=== PATIENT | female | born 1940 | race Caucasian/White ===

== ENCOUNTER 2018-01-02 17:13 | Emergency (ER) | payer OTHER ==
[~2018-01-02] VITALS: Ht 154.9 cm; Wt 57.6 kg
[2018-01-02] MEDS ORDERED: NORVASC10 MG PO (17:53)
[2018-01-02] MEDS ORDERED: SYNTHROID75 MCG PO (17:53)
== END 2018-01-03 18:20 | disposition home or self-care (01) ==
LOC: ER 17:13
DX: R19.7 Diarrhea, unspecified (principal); E03.8 Other specified hypothyroidism; I10 Essential (primary) hypertension